=== PATIENT | male | born 2000 | race African-American/Black ===

== ENCOUNTER 2018-05-18 04:07 | Emergency (ER) | payer MEDICAID ==
[~2018-05-18] VITALS: Ht 193 cm; Wt 77.1 kg
[2018-05-18 04:07] VITALS: BP 119/72
--- NOTE | 2018-05-18 04:28 | Emergency Room Report ---
History of Present Illness General Chief Complaint: Upper Extremity Injury Source: Patient Present Illness HPI This is a 17-year-old male who is right-hand dominant. He has a history of recurrent shoulder dislocation. Started when he was 13. Patient presents with a right shoulder dislocation. Occur when he was sleeping. He rolled over and felt his shoulder popped out. Occurred just prior to arrival. Pain is 9 out of 10. Worse with movement. Better with rest. No other injury. He scheduled to see physical therapy for work on his shoulder prior to surgery. Allergies: Uncoded Allergies: SUN FLOWER SEEDS (Allergy, Unknown, 05/18/18) Patient History Past Medical History: see triage record, old chart reviewed Past Surgical History: none Pertinent Family History: none Social History: Denies: smoking Immunizations: UTD, other Reviewed Nursing Documentation: PMH: Agreed; PSxH: Agreed Review of Systems Eye: Denies: eye pain, blurred vision ENT: Denies: ear pain, nose congestion, throat swelling Respiratory: Denies: cough, shortness of breath Cardiovascular: Denies: chest pain, palpitations Gastrointestinal: Denies: abdominal pain, diarrhea, nausea, vomiting Musculoskeletal: Reports: joint pain; Denies: back pain Skin: Denies: rash Neurological: Denies: headache, numbness Endocrine: Denies: increased thirst, increased urine Hematologic/Lymphatic: Denies: easy bruising All Other Systems: negative except mentioned in HPI Physical Exam Vital Signs Date Time Temp Pulse Resp B/P (MAP) Pulse Ox O2 Delivery O2 Flow Rate FiO2 05/18/18 04:03 98.2 47 16 127/76 100 Room Air vitals normal Sp02 EP Interpretation: reviewed, normal General Appearance: well appearing, no apparent distress, alert Head: normocephalic, atraumatic Eyes: bilateral eye PERRL, bilateral eye EOMI ENT: hearing grossly normal, normal pharynx Neck: full range of motion, supple, no meningismus Respiratory: chest non-tender, lungs clear, normal breath sounds Cardiovascular #1: regular rate, rhythm, no murmur Gastrointestinal: normal bowel sounds, non tender, no mass, no organomegaly, no bruit, non-distended Musculoskeletal: back normal, gait/station normal, other - Right shoulder: There is a anterior deformity consistent with anterior dislocation. Sensation normal. Elbow nontender. Pulse normal. Neurologic: alert, oriented x3 Psychiatric: mood/affect normal Skin: warm/dry Procedures Splinting Splinting : Consent: Verbal Location: Right shoulder Pre-Made Type: Shoulder immobilizer Pre-Proc Neuro Vasc Exam: normal Post-Proc Neuro Vasc Exam: normal Patient Tolerated: Well Complications: None Joint Reduction Joint Reduction : Consent: Verbal Joint Reduction Site: shoulder (R) Procedural Sedation: No Reduction Attempts: One Pre-Procedure NV Exam: Yes Post-Procedure NV Exam: Yes Post Joint Reduction Film: joint reduced Patient Tolerated: Well Complications: None Progress Area cleaned with alcohol. I injected 10 mL of 1% lidocaine without epinephrine into the joint. Afterward, with gentle external rotation, I reduced the shoulder without any difficulty. Patient tolerated procedure without a problem. Shoulder immobilizer placed. Medical Decision Making Diagnostic Impression: Primary Impression: Closed anterior dislocation of right shoulder Qualified Codes: S43.014A - Anterior dislocation of right humerus, initial encounter ER Course Patient with anterior shoulder dislocation. Reduced without sedation here. No evidence of any other trauma. Sensation normal. We'll discharge home. Other X-Ray Diagnostic Results Other X-Ray Diagnostic Results : X-Ray ordered: Right shoulder x-rays # of Views/Limited Vs Complete: 3 View Indication: Pain EP Interpretation: Yes Interpretation: no dislocation, no soft tissue swelling, no fractures Impression: No acute disease - successful post reduction Electronically Signed by: Ramu Morales MD Last Vital Signs Date Time Temp Pulse Resp B/P (MAP) Pulse Ox O2 Delivery O2 Flow Rate FiO2 05/18/18 04:03 98.2 47 16 127/76 100 Room Air Status: improved Disposition: HOME, SELF-CARE Condition: Stable Scripts Ibuprofen* (MOTRIN*) 600 Mg Tablet 600 MG ORAL THREE TIMES A DAY, #30 TAB 0 Refills Prov: Ramu Morales MD 05/18/18 Hydrocodone/Acetaminophen 5-325* (HYDROCODONE/ACETAMINOPHEN 5-325*) 1 Each Tablet 1 TAB ORAL Q6H PRN for For Pain, #10 TAB 0 Refills Prov: Ramu Morales MD 05/18/18 Additional Instructions: Follow-up with your doctor in 7 days. Return if symptom worsen. Ramu Morales MD May 18, 2018 04:28
[2018-05-18] MEDS ORDERED: Norco 5mg/325mg tab ORAL ONE (04:30)
[2018-05-18] MEDS ORDERED: HYDROCODON-ACE1 EA15 ORAL (04:43)
[2018-05-18] MEDS ORDERED: IBUPROFEN600 MG ORAL (04:43)
[2018-05-18 04:48] VITALS: BP 121/71
[2018-05-18 04:53] VITALS: BP 121/71
--- NOTE | 2018-05-18 13:47 | Diagnostic Imaging Report ---
Indication: Right shoulder pain Findings: 3 views of the right shoulder were obtained. No acute fracture is identified. Glenohumeral joint appears normal. There may be a small Hill-Sachs deformity. The distal clavicle is slightly high riding with respect to the acromion indicative of the acromioclavicular joint separation, acuity of which is unknown. There is no soft tissue swelling identified. Correlate clinically. IMPRESSION: No acute injury appreciated. Mild Hill-Sachs deformity. Mild to moderate AC separation
== END 2018-05-18 04:48 | disposition home or self-care (01) ==
LOC: EDBD 04:07 → EMR 04:29
DX: M24.411 Recurrent dislocation, right shoulder (principal)
CPT/HCPCS: 23545; 73030; 99283; Z7502; 29105